=== PATIENT | male | born 1990 | race Caucasian/White ===

== ENCOUNTER 2017-01-04 03:52 | Emergency (ER) | payer OTHER ==
[2017-01-04 04:00] VITALS: BP 129/66
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
== END 2017-01-04 04:39 | disposition home or self-care (01) ==
LOC: ER 03:52
DX: S29.012A Strain of muscle and tendon of back wall of thorax, initial encounter (principal); M54.6 Pain in thoracic spine; V87.7XXA Person injured in collision between other specified motor vehicles (traffic), initial encounter
CPT/HCPCS: 99283